=== PATIENT | male | born 1980 | race Caucasian/White ===

== ENCOUNTER 2024-07-22 07:56 | Day surgery (SDC) | payer OTHER ==
[2024-07-15 14:50] VITALS: BMI 29.7
[2024-07-22 09:23] VITALS: BP 124/50; PULSE 75; RESP 18; TEMP 97.7
== END 2024-07-22 09:34 | disposition home or self-care (01) ==
LOC: FASU-ENDO 07:56
PROVIDERS: ATTEND Internal Medicine Gastroenterology
PROC: 0DB68ZX Excision of Stomach, Via Natural or Artificial Opening Endoscopic, Diagnostic (ICD-10-PCS; 2024-07-22)
PROC: 0DB28ZX Excision of Middle Esophagus, Via Natural or Artificial Opening Endoscopic, Diagnostic (ICD-10-PCS; 2024-07-22)
PROC: 0DB48ZX Excision of Esophagogastric Junction, Via Natural or Artificial Opening Endoscopic, Diagnostic (ICD-10-PCS; 2024-07-22)
PROC: 0DB98ZX Excision of Duodenum, Via Natural or Artificial Opening Endoscopic, Diagnostic (ICD-10-PCS; principal; 2024-07-22 09:06)
DX: K20.90 Esophagitis, unspecified without bleeding (principal); K31.89 Other diseases of stomach and duodenum
CPT/HCPCS: 88305-TC; 88342-TC